=== PATIENT | male | born 1955 | race Two or more races ===

== ENCOUNTER 2021-05-01 03:13 | Inpatient (IN) | payer MEDICARE, MEDICAID ==
[~2021-05-01] VITALS: Ht 170.2 cm; Wt 165.0 kg
[2021-05-01] VITALS (10 sets, daily range): BP systolic 86–118; BP diastolic 37–64
[2021-05-01 03:51] LABS: ABG BASE EXCESS 0.5 mmol/L (-2.0-3.0); ABG CARBOXYHEMOGLOBIN 1.5 % (0.0-1.5); ABG HCO3 23.4 mmol/L (22.0-26.0); ABG METHEMOGLOBIN 0.3 % (0.0-1.5); ABG OXYGEN CONTENT 16.1 mL/dL (15.0-23.0); ABG OXYGEN SATURATION 85.5 % (95.0-98.0); ABG PCO2 66 mmHg (35-45); ABG PH 7.242 (7.35-7.450); ABG TOTAL HEMOGLOBIN 13.6 G/dL (12.0-18.0); SOURCE, BLOOD GAS ARTERIAL; TEMPERATURE, FAHRENHEIT, BG 98.8 FAHREN (96.0-98.6)
[2021-05-01 03:53] LABS: BASOPHILS % (AUTO) 0.6 % (0.0-2.0); EOSINOPHILS % (AUTO) 0.5 % (1.0-6.0); HEMATOCRIT 39.4 % (41-53); HEMOGLOBIN 12.5 g/dL (13.5-17.5); LYMPHOCYTES # (AUTO) 0.7 K/uL (1.0-4.8); LYMPHOCYTES % (AUTO) 5.2 % (22.0-44.0); MEAN CORPUSCULAR HEMOGLOBIN 28.5 pg (26.0-34.0); MEAN CORPUSCULAR HGB CONC 31.7 G/dL (31.0-37.0); MEAN CORPUSCULAR VOLUME 90 fL (80-100); MONOCYTES # (AUTO) 0.7 K/uL (0.1-1.0); MONOCYTES % (AUTO) 5.3 % (2.0-9.0); NEUTROPHILS # (AUTO) 11.2 K/uL (1.8-7.7); PLATELET COUNT (AUTO) 178 K/uL (150-450); RED BLOOD CELL COUNT(AUTO) 4.39 MIL/uL (4.50-5.90); RED CELL DISTRIBUTION WIDTH 16.6 % (11.5-14.5)
[2021-05-01 03:53] LABS: O2 DEVICE,BLOOD GAS VENTILATOR (ROOM AIR); PEEP,BG 5 cm H2O; SITE, BLOOD GAS LFT RADIAL; SPONTANEOUS VT, BG 473 ml; VT, ABG 500 ml
[2021-05-01] MEDS ORDERED: PIPERACILLIN/TAZO 3.375 GM/D5W 50 ML IV ONE (04:00)
[2021-05-01] MEDS ORDERED: VANCOMYCIN HCL 1 GM/D5% WATER 200 ML IV ONE ×2 (04:00→08:00)
[2021-05-01] MEDS ORDERED: AZITHROMYCIN 500 MG/NS 250 ML IV ONE (04:00)
[2021-05-01 04:03] LABS: NEUTROPHILS % (AUTO) 88.4 % (40.0-70.0)
[2021-05-01 04:09] LABS: PROTHROMBIN TIME 68.7 SEC (9.4-11.6)
[2021-05-01 04:11] LABS: COVID AG,FIA SOURCE NASOPHARYNGEAL
[2021-05-01 04:13] LABS: LACTIC ACID 1.4 mmol/L (0.4-2.0)
[2021-05-01 04:20] LABS: CALCIUM, TOTAL 8.4 mg/dL (8.8-10.5); CREATININE 1.3 mg/dL (0.60-1.30); POTASSIUM 3.4 mmol/L (3.5-5.1)
[2021-05-01 04:24] LABS: ALBUMIN 3.5 g/dL (3.4-5.0); BILIRUBIN,TOTAL 0.6 mg/dL (0.1-1.0); MAGNESIUM 2.3 mg/dL (1.80-2.40); PHOSPHORUS 4.7 mg/dL (2.5-4.9); TOTAL PROTEIN, SERUM 6.4 g/dL (6.4-8.2)
[2021-05-01] MEDS ORDERED: FUROSEMIDE 40 MG/4 ML VIAL IVP ONE (04:45)
[2021-05-01] MEDS ORDERED: ONDANSETRON HCL 4 MG/2 ML VIAL IVP PRN (04:45)
[2021-05-01] MEDS ORDERED: DEXTROSE 50%-WATER 25 GM/50 ML SYRINGE IVP PRN (05:00)
[2021-05-01 05:07] LABS: ABG BASE EXCESS 2.7 mmol/L (-2.0-3.0); ABG CARBOXYHEMOGLOBIN 1.2 % (0.0-1.5); ABG HCO3 25.7 mmol/L (22.0-26.0); ABG METHEMOGLOBIN 0.1 % (0.0-1.5); ABG OXYHEMOGLOBIN 83.9 % (94.0-100.0); ABG PCO2 55 mmHg (35-45); ABG PH 7.336 (7.35-7.450); ABG TOTAL HEMOGLOBIN 12.7 G/dL (12.0-18.0); PO2, ARTERIAL BG 53.2 mmHg (79.0-87.0); SOURCE, BLOOD GAS ARTERIAL; TEMPERATURE, FAHRENHEIT, BG 98.5 FAHREN (96.0-98.6)
[2021-05-01] MEDS ORDERED: PROPOFOL 1000 MG/ISO-OSM 100 ML IV PRN (05:15)
[2021-05-01 05:23] LABS: INR 7.7 (0.9-1.1)
[2021-05-01 05:38] LABS: O2 DEVICE,BLOOD GAS VENTILATOR (ROOM AIR); PEEP,BG 10 cm H2O; SITE, BLOOD GAS RT RADIAL; VT, ABG 500 ml
[2021-05-01 05:39] LABS: SPONTANEOUS VT, BG 469 ml
[2021-05-01] MEDS: POTASSIUM CHL 10 MEQ/WATER 50 ML IV SCH ×2 (05:47→06:34)
[2021-05-01 05:49] LABS: APPEARANCE,URINE CLEAR (CLEAR); BILIRUBIN,URINE NEGATIVE (NEGATIVE); GLUCOSE, URINE (UA) NEGATIVE (NEGATIVE); KETONES,URINE NEGATIVE (NEGATIVE); LEUKOCYTE ESTERASE ,URINE NEGATIVE (NEGATIVE); NITRATE,URINE NEGATIVE (NEGATIVE); OCCULT BLOOD,URINE MODERATE (NEGATIVE); PH,URINE 5.5 (5.0-8.0); PROTEIN,URINE SEE CONFIRM (NEGATIVE); UROBILINOGEN,URINE 0.2 mg/dL (<=1.0)
[2021-05-01] MEDS: INSULIN GLARGINE,HUM.REC.ANLOG 100 UNITS/ML SQ SCH ×2 (05:49→21:00)
[2021-05-01] MEDS: PANTOPRAZOLE SODIUM 40 MG/VIAL IVP SCH ×2 (05:49→21:00)
[2021-05-01 05:51] LABS: SULFOSALICYLIC ACID,URINE 4+ (Negative)
[2021-05-01 05:52] LABS: BACTERIA,URINE Rare /HPF (None Seen); WBC,URINE 0-2 /HPF (0-5)
[2021-05-01] MEDS ORDERED: PHYTONADIONE 10 MG/1 ML AMP SQ ONE (06:00)
[2021-05-01] MEDS: FentaNYL CIT 1000MCG/0.9% NACL 100 ML IV PRN ×3 (06:36→21:58)
[2021-05-01] MEDS ORDERED: NOREPINEPHRINE 4 MG/D5%-WATER 250 ML IV PRN (06:45)
[2021-05-01 07:02] LABS: INFLUENZA TYPE A NEGATIVE FOR TYPE A (NEGATIVE); INFLUENZA TYPE B NEGATIVE FOR TYPE B (NEGATIVE)
[2021-05-01] MEDS: FUROSEMIDE 20 MG/2 ML VIAL IVP SCH ×2 (08:28→15:46)
[2021-05-01] MEDS: METOPROLOL SUCCINATE 25 MG ER TABLET PO SCH ×2 (09:00→21:00)
[2021-05-01] MEDS: NITROGLYCERIN 2% (1 GM=INCH) PACKET TP SCH ×2 (09:00→15:31)
[2021-05-01] MEDS ORDERED: PIPERACILLIN/TAZO 3.375 GM/D5W 50 ML IV SCH (12:00)
[2021-05-01] MEDS: CHLORHEXIDINE GLUCONATE 0.12% 15 ML UDCUP ORAL RINSE MM SCH ×2 (12:15→22:54)
[2021-05-01] MEDS: PIPERACILLIN SODIUM/TAZOBACTAM 4.5 GM in DEXTROSE 5%-WATER 100 ML IV SCH ×2 (12:16→18:57)
[2021-05-01] MEDS ORDERED: PROPOFOL 1000 MG/ISO-OSM 100 ML ONE (12:22)
[2021-05-01] MEDS ORDERED: SODIUM CHLORIDE 0.9% 100 ML ONE (12:59)
[2021-05-01] MEDS ORDERED: IOHEXOL 350 MG/ML 100 ML VIAL ONE (12:59)
[2021-05-01] MEDS: ATORVASTATIN CALCIUM 20 MG TABLET PO SCH ×2 (14:00→15:26)
[2021-05-01] MEDS: INSULIN LISPRO 100 UNITS/ML SQ PRN (14:10)
[2021-05-01 15:10] LABS: BASOPHILS % (AUTO) 0.5 % (0.0-2.0); EOSINOPHILS % (AUTO) 0.8 % (1.0-6.0); HEMATOCRIT 36.1 % (41-53); HEMOGLOBIN 11.7 g/dL (13.5-17.5); LYMPHOCYTES # (AUTO) 0.4 K/uL (1.0-4.8); LYMPHOCYTES % (AUTO) 4.1 % (22.0-44.0); MEAN CORPUSCULAR HEMOGLOBIN 28.7 pg (26.0-34.0); MEAN CORPUSCULAR HGB CONC 32.4 G/dL (31.0-37.0); MEAN CORPUSCULAR VOLUME 89 fL (80-100); MONOCYTES # (AUTO) 0.7 K/uL (0.1-1.0); MONOCYTES % (AUTO) 6.9 % (2.0-9.0); PLATELET COUNT (AUTO) 155 K/uL (150-450); RED BLOOD CELL COUNT(AUTO) 4.07 MIL/uL (4.50-5.90); RED CELL DISTRIBUTION WIDTH 16.8 % (11.5-14.5)
[2021-05-01 15:11] LABS: NEUTROPHILS % (AUTO) 87.7 % (40.0-70.0)
[2021-05-01 15:32] LABS: CALCIUM, TOTAL 7.5 mg/dL (8.8-10.5); CREATININE 1.34 mg/dL (0.60-1.30); POTASSIUM 3.6 mmol/L (3.5-5.1)
[2021-05-01 15:38] LABS: ALBUMIN 2.7 g/dL (3.4-5.0); BILIRUBIN,TOTAL 0.4 mg/dL (0.1-1.0); TOTAL PROTEIN, SERUM 5.3 g/dL (6.4-8.2)
[2021-05-01] MEDS: NOREPINEPHRINE 4 MG/D5%-WATER 250 ML IV PRN ×2 (16:15→21:57)
[2021-05-01 17:34] LABS: PROTHROMBIN TIME 78.6 SEC (9.4-11.6)
[2021-05-01] MEDS ORDERED: PHYTONADIONE 5 MG in SODIUM CHLORIDE 0.9% 50 ML IV ONE (17:45)
[2021-05-01] MEDS: PROPOFOL 1000 MG/ISO-OSM 100 ML IV PRN ×2 (18:00→21:57)
[2021-05-01] MEDS: VANCOMYCIN HCL 1.5 GM in DEXTROSE 5%-WATER 250 ML IV SCH (20:00)
[2021-05-02] MEDS: PIPERACILLIN SODIUM/TAZOBACTAM 4.5 GM in DEXTROSE 5%-WATER 100 ML IV SCH ×4 (01:20→17:31)
[2021-05-02] MEDS: PROPOFOL 1000 MG/ISO-OSM 100 ML IV PRN ×2 (01:21→12:15)
[2021-05-02] MEDS: NOREPINEPHRINE 4 MG/D5%-WATER 250 ML IV PRN ×2 (01:21→22:22)
[2021-05-02] MEDS: CISATRACURIUM BESYLATE 100 MG in DEXTROSE 5%-WATER 240 ML IV PRN ×2 (01:22→15:37)
[2021-05-02 03:12] LABS: ABG METHEMOGLOBIN 0.3 % (0.0-1.5); SOURCE, BLOOD GAS ARTERIAL
[2021-05-02] MEDS: FentaNYL CIT 1000MCG/0.9% NACL 100 ML IV PRN ×3 (03:24→18:22)
[2021-05-02 03:40] LABS: ABG BASE EXCESS -0.3 mmol/L (-2.0-3.0); ABG CARBOXYHEMOGLOBIN 0.2 % (0.0-1.5); ABG OXYGEN CONTENT 14.8 mL/dL (15.0-23.0); ABG OXYGEN SATURATION 92.5 % (95.0-98.0); ABG PCO2 47 mmHg (35-45); ABG TOTAL HEMOGLOBIN 11.4 G/dL (12.0-18.0); PO2, ARTERIAL BG 69.9 mmHg (79.0-87.0); TEMPERATURE, FAHRENHEIT, BG 100.1 FAHREN (96.0-98.6)
[2021-05-02 03:41] LABS: O2 DEVICE,BLOOD GAS VENTILATOR (ROOM AIR); PEEP,BG 12 cm H2O; SITE, BLOOD GAS RT RADIAL; SPONTANEOUS VT, BG 443 ml; VT, ABG 450 ml
[2021-05-02 05:06] LABS: BASOPHILS % (AUTO) 0.5 % (0.0-2.0); EOSINOPHILS % (AUTO) 1.2 % (1.0-6.0); HEMATOCRIT 34.9 % (41-53); HEMOGLOBIN 11.1 g/dL (13.5-17.5); LYMPHOCYTES # (AUTO) 0.3 K/uL (1.0-4.8); LYMPHOCYTES % (AUTO) 3.8 % (22.0-44.0); MEAN CORPUSCULAR HGB CONC 31.8 G/dL (31.0-37.0); MEAN CORPUSCULAR VOLUME 91 fL (80-100); MONOCYTES # (AUTO) 0.3 K/uL (0.1-1.0); MONOCYTES % (AUTO) 4.4 % (2.0-9.0); NEUTROPHILS # (AUTO) 6.8 K/uL (1.8-7.7); RED BLOOD CELL COUNT(AUTO) 3.83 MIL/uL (4.50-5.90); RED CELL DISTRIBUTION WIDTH 16.5 % (11.5-14.5)
[2021-05-02 05:29] LABS: ALBUMIN 2.8 g/dL (3.4-5.0); BILIRUBIN,TOTAL 0.7 mg/dL (0.1-1.0); CALCIUM, TOTAL 8.1 mg/dL (8.8-10.5); CREATININE 2.03 mg/dL (0.60-1.30); MAGNESIUM 1.8 mg/dL (1.80-2.40); POTASSIUM 3.6 mmol/L (3.5-5.1); TOTAL PROTEIN, SERUM 5.4 g/dL (6.4-8.2)
[2021-05-02 06:29] LABS: NEUTROPHILS % (AUTO) 90.1 % (40.0-70.0)
[2021-05-02 06:48] LABS: PLATELET COUNT (AUTO) 150 K/uL (150-450)
[2021-05-02 07:05] LABS: INR 1.5 (0.9-1.1); PROTHROMBIN TIME 15.5 SEC (9.4-11.6)
[2021-05-02 08:36] LABS: ABG BASE EXCESS -1.7 mmol/L (-2.0-3.0); ABG CARBOXYHEMOGLOBIN 0.3 % (0.0-1.5); ABG HCO3 22.7 mmol/L (22.0-26.0); ABG METHEMOGLOBIN 0.1 % (0.0-1.5); ABG OXYGEN CONTENT 14.1 mL/dL (15.0-23.0); ABG OXYGEN SATURATION 91.3 % (95.0-98.0); ABG OXYHEMOGLOBIN 90.9 % (94.0-100.0); ABG PCO2 52 mmHg (35-45); ABG PH 7.296 (7.35-7.450); PO2, ARTERIAL BG 69.2 mmHg (79.0-87.0); SOURCE, BLOOD GAS ARTERIAL; TEMPERATURE, FAHRENHEIT, BG 100.1 FAHREN (96.0-98.6)
[2021-05-02 08:37] LABS: ABG A-A DIFF O2 589.3 mmHg (10-20.0); O2 DEVICE,BLOOD GAS VENT (ROOM AIR); SITE, BLOOD GAS RT RADIAL; VT, ABG 450 ml
[2021-05-02 08:38] LABS: PEEP,BG 12 cm H2O
[2021-05-02] MEDS: FUROSEMIDE 20 MG/2 ML VIAL IVP SCH ×3 (08:44→15:37)
[2021-05-02] MEDS: VANCOMYCIN HCL 1.5 GM in DEXTROSE 5%-WATER 250 ML IV SCH ×2 (08:44→20:56)
[2021-05-02] MEDS: NITROGLYCERIN 2% (1 GM=INCH) PACKET TP SCH ×3 (08:44→15:39)
[2021-05-02] MEDS: METOPROLOL SUCCINATE 25 MG ER TABLET PO SCH ×2 (09:34→20:59)
[2021-05-02] MEDS: ATORVASTATIN CALCIUM 20 MG TABLET PO SCH (09:34)
[2021-05-02] MEDS: PANTOPRAZOLE SODIUM 40 MG/VIAL IVP SCH ×2 (09:34→21:28)
[2021-05-02] MEDS: CHLORHEXIDINE GLUCONATE 0.12% 15 ML UDCUP ORAL RINSE MM SCH ×2 (09:34→21:28)
[2021-05-02 10:11] LABS: GLUCOSE,POINT OF CARE 200 MG/DL (70-110)
[2021-05-02 12:31] LABS: GLUCOSE,POINT OF CARE 232 MG/DL (70-110)
[2021-05-02 16:06] LABS: GLUCOMETER DEV NAME(LOC) ERT.5; GLUCOSE,POINT OF CARE 236 MG/DL (70-110)
[2021-05-02] MEDS ORDERED: ACETAMINOPHEN 650 MG/20.3 ML SOLUTION UDCUP NG PRN (17:30)
[2021-05-02 20:31] LABS: GLUCOMETER DEV NAME(LOC) ERT.5; GLUCOSE,POINT OF CARE 265 MG/DL (70-110)
[2021-05-02] MEDS: INSULIN GLARGINE,HUM.REC.ANLOG 100 UNITS/ML SQ SCH (21:01)
[2021-05-03] MEDS: METOPROLOL SUCCINATE 25 MG ER TABLET PO SCH ×5 (00:54→22:55)
[2021-05-03] MEDS: PIPERACILLIN SODIUM/TAZOBACTAM 4.5 GM in DEXTROSE 5%-WATER 100 ML IV SCH ×4 (00:54→17:25)
[2021-05-03] MEDS: FUROSEMIDE 20 MG/2 ML VIAL IVP SCH ×3 (01:16→15:47)
[2021-05-03] MEDS: NITROGLYCERIN 2% (1 GM=INCH) PACKET TP SCH ×3 (01:31→15:47)
[2021-05-03 01:51] LABS: GLUCOMETER DEV NAME(LOC) ERT.5; GLUCOSE,POINT OF CARE 267 MG/DL (70-110)
[2021-05-03 06:21] LABS: GLUCOMETER DEV NAME(LOC) ERT.5; GLUCOSE,POINT OF CARE 267 MG/DL (70-110)
[2021-05-03] MEDS ORDERED: DEXTROSE 50%-WATER 25 GM/50 ML SYRINGE IVP PRN (06:30)
[2021-05-03] MEDS: INSULIN LISPRO 100 UNITS/ML SQ PRN ×3 (06:34→22:02)
[2021-05-03] MEDS: ATORVASTATIN CALCIUM 20 MG TABLET PO SCH (08:44)
[2021-05-03] MEDS: PANTOPRAZOLE SODIUM 40 MG/VIAL IVP SCH ×2 (08:45→21:59)
[2021-05-03] MEDS: VANCOMYCIN HCL 1.5 GM in DEXTROSE 5%-WATER 250 ML IV SCH (08:45)
[2021-05-03] MEDS: PROPOFOL 1000 MG/ISO-OSM 100 ML IV PRN ×2 (08:48→13:33)
[2021-05-03] MEDS: CHLORHEXIDINE GLUCONATE 0.12% 15 ML UDCUP ORAL RINSE MM SCH ×2 (09:19→22:00)
[2021-05-03] MEDS: FentaNYL CIT 1000MCG/0.9% NACL 100 ML IV PRN ×2 (10:24→16:16)
[2021-05-03] MEDS: CISATRACURIUM BESYLATE 100 MG in DEXTROSE 5%-WATER 240 ML IV PRN (11:05)
[2021-05-03 11:12] LABS: BASOPHILS % (AUTO) 0.7 % (0.0-2.0); EOSINOPHILS % (AUTO) 2.2 % (1.0-6.0); HEMATOCRIT 30.3 % (41-53); HEMOGLOBIN 10.5 g/dL (13.5-17.5); LYMPHOCYTES # (AUTO) 0.1 K/uL (1.0-4.8); LYMPHOCYTES % (AUTO) 1.8 % (22.0-44.0); MEAN CORPUSCULAR HGB CONC 34.8 G/dL (31.0-37.0); MEAN CORPUSCULAR VOLUME 89 fL (80-100); MONOCYTES # (AUTO) 0.2 K/uL (0.1-1.0); MONOCYTES % (AUTO) 3.4 % (2.0-9.0); NEUTROPHILS # (AUTO) 6.3 K/uL (1.8-7.7); RED BLOOD CELL COUNT(AUTO) 3.41 MIL/uL (4.50-5.90); RED CELL DISTRIBUTION WIDTH 15.8 % (11.5-14.5)
[2021-05-03 11:13] LABS: NEUTROPHILS % (AUTO) 91.9 % (40.0-70.0)
[2021-05-03 11:26] LABS: PLATELET COUNT (AUTO) 69 K/uL (150-450)
[2021-05-03 11:30] LABS: CALCIUM, TOTAL 6.9 mg/dL (8.8-10.5); CREATININE 2.68 mg/dL (0.60-1.30); POTASSIUM 3.5 mmol/L (3.5-5.1)
[2021-05-03 11:36] LABS: BILIRUBIN,TOTAL 1.2 mg/dL (0.1-1.0)
[2021-05-03 12:27] LABS: VANCOMYCIN,RANDOM 70.5 mcg/mL (25.0-50.0)
[2021-05-03 12:33] LABS: GLUCOMETER DEV NAME(LOC) ERT.5; GLUCOSE,POINT OF CARE 296 MG/DL (70-110)
[2021-05-03 12:40] LABS: TOTAL PROTEIN, SERUM 4.9 g/dL (6.4-8.2)
[2021-05-03 19:21] LABS: GLUCOMETER DEV NAME(LOC) ERT.5; GLUCOSE,POINT OF CARE 261 MG/DL (70-110)
[2021-05-03] MEDS: VANCOMYCIN HCL 750 MG in DEXTROSE 5%-WATER 250 ML IV SCH (21:39)
[2021-05-03] MEDS: INSULIN GLARGINE,HUM.REC.ANLOG 100 UNITS/ML SQ SCH (22:01)
[2021-05-04] MEDS: FUROSEMIDE 20 MG/2 ML VIAL IVP SCH (00:34)
[2021-05-04] MEDS: NITROGLYCERIN 2% (1 GM=INCH) PACKET TP SCH ×3 (00:34→16:00)
[2021-05-04] MEDS: PIPERACILLIN SODIUM/TAZOBACTAM 4.5 GM in DEXTROSE 5%-WATER 100 ML IV SCH ×2 (00:34→07:41)
[2021-05-04 01:31] LABS: GLUCOMETER DEV NAME(LOC) ERT.5; GLUCOSE,POINT OF CARE 258 MG/DL (70-110)
[2021-05-04] MEDS: FentaNYL CIT 1000MCG/0.9% NACL 100 ML IV PRN ×4 (04:29→18:55)
[2021-05-04 05:00] VITALS: BP 102/60
[2021-05-04 05:26] LABS: SOURCE, BLOOD GAS ARTERIAL
[2021-05-04] MEDS: PROPOFOL 1000 MG/ISO-OSM 100 ML IV PRN ×8 (05:30→22:50)
[2021-05-04 05:57] LABS: CALCIUM, TOTAL 7.8 mg/dL (8.8-10.5); CREATININE 3.37 mg/dL (0.60-1.30); PHOSPHORUS 7.5 mg/dL (2.5-4.9); POTASSIUM 3.6 mmol/L (3.5-5.1)
[2021-05-04 06:16] LABS: ABG METHEMOGLOBIN 0.3 % (0.0-1.5); ABG TOTAL HEMOGLOBIN 11.7 G/dL (12.0-18.0)
[2021-05-04] MEDS ORDERED: VASOPRESSIN 40 UNITS in DEXTROSE 5%-WATER 98 ML IV PRN (06:30)
[2021-05-04] MEDS ORDERED: PHENYLEPHRINE 200 MG/D5%-WATER 250 ML IV PRN (06:30)
[2021-05-04 06:40] LABS: ABG BASE EXCESS -5.6 mmol/L (-2.0-3.0); ABG CARBOXYHEMOGLOBIN 0.7 % (0.0-1.5); ABG HCO3 19.2 mmol/L (22.0-26.0); ABG OXYGEN CONTENT 13.1 mL/dL (15.0-23.0); ABG OXYHEMOGLOBIN 79.5 % (94.0-100.0); ABG PCO2 58 mmHg (35-45); PO2, ARTERIAL BG 50.4 mmHg (79.0-87.0); TEMPERATURE, FAHRENHEIT, BG 97.7 FAHREN (96.0-98.6)
[2021-05-04 06:44] LABS: ABG OXYGEN SATURATION 80.3 % (95.0-98.0); ABG PH 7.203 (7.35-7.450); O2 DEVICE,BLOOD GAS VENTILATOR (ROOM AIR); PEEP,BG 12 cm H2O; SITE, BLOOD GAS RT BRACHIAL; VENT MODE, BG Press. Control Vent (ROOM AIR)
[2021-05-04] MEDS ORDERED: SODIUM CHLORIDE 0.9% 250 ML IV ONE (07:52)
[2021-05-04] MEDS: NOREPINEPHRINE 4 MG/D5%-WATER 250 ML IV PRN (07:55)
[2021-05-04] MEDS: CISATRACURIUM BESYLATE 100 MG in DEXTROSE 5%-WATER 240 ML IV PRN ×2 (07:56→16:54)
[2021-05-04 08:00] VITALS: BP 100/60
[2021-05-04] MEDS: METOPROLOL SUCCINATE 25 MG ER TABLET PO SCH ×2 (09:00→21:00)
[2021-05-04] MEDS: VANCOMYCIN HCL 750 MG in DEXTROSE 5%-WATER 250 ML IV SCH (09:06)
[2021-05-04] MEDS: PANTOPRAZOLE SODIUM 40 MG/VIAL IVP SCH ×2 (09:07→21:34)
[2021-05-04] MEDS: CHLORHEXIDINE GLUCONATE 0.12% 15 ML UDCUP ORAL RINSE MM SCH ×2 (09:07→21:34)
[2021-05-04] MEDS: ATORVASTATIN CALCIUM 20 MG TABLET PO SCH (09:08)
[2021-05-04] MEDS: ETHYL ALCOHOL 62% ANTISEPTIC NASAL INHALANT 0.6 ML AMPUL NASAL SCH ×2 (09:08→21:34)
[2021-05-04] MEDS: NOREPINEPHRINE BITARTRATE 8 MG in DEXTROSE 5%-WATER 242 ML IV PRN ×3 (10:30→23:11)
[2021-05-04 12:00] VITALS: BP 93/58
[2021-05-04 12:01] LABS: ABG BASE EXCESS -5.1 mmol/L (-2.0-3.0); ABG CARBOXYHEMOGLOBIN 0.3 % (0.0-1.5); ABG METHEMOGLOBIN 0.3 % (0.0-1.5); SOURCE, BLOOD GAS ARTERIAL; TEMPERATURE, FAHRENHEIT, BG 97.7 FAHREN (96.0-98.6)
[2021-05-04 12:04] LABS: ABG HCO3 20.6 mmol/L (22.0-26.0); ABG OXYGEN SATURATION 93.1 % (95.0-98.0); ABG OXYHEMOGLOBIN 92.5 % (94.0-100.0); ABG PCO2 37 mmHg (35-45); ABG TOTAL HEMOGLOBIN 11.5 G/dL (12.0-18.0); PO2, ARTERIAL BG 65.6 mmHg (79.0-87.0)
[2021-05-04 12:05] LABS: O2 DEVICE,BLOOD GAS VENTILATOR (ROOM AIR); PEEP,BG 10 cm H2O; PRESSURE SUPPORT, BG 26 cm H2O; SITE, BLOOD GAS RT BRACHIAL
[2021-05-04 12:06] LABS: SPONTANEOUS VT, BG 506 ml
[2021-05-04 12:11] LABS: GLUCOSE,POINT OF CARE 304 MG/DL (70-110)
[2021-05-04] MEDS: PIPERACILLIN SODIUM/TAZOBACTAM 2.25 GM in DEXTROSE 5%-WATER 50 ML IV SCH ×2 (12:20→16:55)
[2021-05-04] MEDS: INSULIN LISPRO 100 UNITS/ML SQ PRN ×2 (12:22→22:14)
[2021-05-04] MEDS ORDERED: VANCOMYCIN HCL 1 GM/D5% WATER 200 ML IV PRN (15:15)
[2021-05-04 16:00] VITALS: BP 102/58
[2021-05-04 17:22] LABS: ABG METHEMOGLOBIN 0.3 % (0.0-1.5); ABG TOTAL HEMOGLOBIN 11.5 G/dL (12.0-18.0); SOURCE, BLOOD GAS ARTERIAL; TEMPERATURE, FAHRENHEIT, BG 98.1 FAHREN (96.0-98.6)
[2021-05-04 17:24] LABS: ABG BASE EXCESS -7.8 mmol/L (-2.0-3.0); ABG CARBOXYHEMOGLOBIN 0.5 % (0.0-1.5); ABG HCO3 18.9 mmol/L (22.0-26.0); ABG OXYGEN CONTENT 15.3 mL/dL (15.0-23.0); ABG OXYGEN SATURATION 94.8 % (95.0-98.0); ABG PCO2 30 mmHg (35-45); ABG PH 7.383 (7.35-7.450); PO2, ARTERIAL BG 72.7 mmHg (79.0-87.0)
[2021-05-04 17:25] LABS: O2 DEVICE,BLOOD GAS VENTILATOR (ROOM AIR); SITE, BLOOD GAS RT BRACHIAL; VENT MODE, BG Press. Control Vent (ROOM AIR); VT, ABG 560 ml
[2021-05-04 17:28] LABS: PEEP,BG 12 cm H2O; SPONTANEOUS VT, BG 560 ml
[2021-05-04 18:36] LABS: GLUCOSE,POINT OF CARE 324 MG/DL (70-110)
[2021-05-04] MEDS ORDERED: DEXAMETHASONE SOD PHOS 4 MG/ML VIAL IVP SCH (19:15)
[2021-05-04 20:00] VITALS: BP 85/62
[2021-05-04 21:56] LABS: GLUCOSE,POINT OF CARE 338 MG/DL (70-110)
[2021-05-04 22:00] VITALS: BP 100/48
[2021-05-04] MEDS: INSULIN GLARGINE,HUM.REC.ANLOG 100 UNITS/ML SQ SCH (22:14)
[2021-05-05] VITALS: BP 90/71
[2021-05-05] MEDS: PIPERACILLIN SODIUM/TAZOBACTAM 2.25 GM in DEXTROSE 5%-WATER 50 ML IV SCH ×2 (00:12→05:04)
[2021-05-05] MEDS: NITROGLYCERIN 2% (1 GM=INCH) PACKET TP SCH ×2 (00:13)
[2021-05-05] MEDS: FentaNYL CIT 1000MCG/0.9% NACL 100 ML IV PRN ×2 (00:13→04:41)
[2021-05-05] MEDS: PROPOFOL 1000 MG/ISO-OSM 100 ML IV PRN ×3 (00:30→05:05)
[2021-05-05 02:00] VITALS: BP 104/70
[2021-05-05 02:33] VITALS: BP 84/56
[2021-05-05] MEDS ORDERED: PHENYLEPHRINE 200 MG/D5%-WATER 250 ML IV PRN (03:45)
[2021-05-05] MEDS ORDERED: DOPamine 400MG/D5W[STANDARD] 250 ML IV PRN (03:45)
[2021-05-05 03:54] VITALS: BP 81/57
[2021-05-05 04:00] VITALS: BP 81/57
[2021-05-05] MEDS: CISATRACURIUM BESYLATE 100 MG in DEXTROSE 5%-WATER 240 ML IV PRN (04:01)
[2021-05-05] MEDS ORDERED: SODIUM CHLORIDE 0.9% 500 ML IV ONE (04:18)
[2021-05-05 05:06] VITALS: BP 81/42
[2021-05-05] MEDS: NOREPINEPHRINE BITARTRATE 8 MG in DEXTROSE 5%-WATER 242 ML IV PRN (05:06)
[2021-05-05] MEDS ORDERED: ATROPINE SULFATE 0.1 MG/ML 10 ML SYRINGE IVP ONE ×2 (05:28→06:00)
[2021-05-05] MEDS ORDERED: SODIUM BICARBONATE [ADULT] 8.4% 50 MEQ/50 ML SYRINGE IVP ONE ×3 (05:29→06:24)
[2021-05-05] MEDS ORDERED: EPINEPHrine 1:10,000 [1 MG/10 ML] SYRINGE ONE (06:20)
[2021-05-05] MEDS ORDERED: LIDOCAINE 2% 5 ML JELLY TP ONE (06:24)
[2021-05-05] MEDS ORDERED: EPINEPHrine 1:10,000 [1 MG/10 ML] SYRINGE IVP ONE (06:24)
[2021-05-05] MEDS ORDERED: CALCIUM CHLORIDE 100 MG/ML 10 ML SYRINGE IVP ONE (06:24)
[2021-05-05] MEDS ORDERED: 0.9% SODIUM CHLORIDE 10 ML SYRINGE IVP ONE (06:24)
[2021-05-05 06:57] LABS: CALCIUM, TOTAL 7.7 mg/dL (8.8-10.5); CREATININE 4.22 mg/dL (0.60-1.30); POTASSIUM 4.6 mmol/L (3.5-5.1); VANCOMYCIN,RANDOM 39.8 mcg/mL (25.0-50.0)
== END 2021-05-05 06:25 | DRG 870 ==
LOC: EMS 03:14 → ICUN 04:40 → UNDOADMIN 05-02 07:48 → ICUN 05-02 07:49 → ICU 05-04 01:00 → UNDODISIN 05-05 06:25
PROVIDERS: ADMIT Internal Medicine; ATTEND Internal Medicine
PROC: 5A1955Z Respiratory Ventilation, Greater than 96 Consecutive Hours (ICD-10-PCS; principal; 2021-05-01)
PROC: 0BH17EZ Insertion of Endotracheal Airway into Trachea, Via Natural or Artificial Opening (ICD-10-PCS; 2021-05-01)
PROC: 5A09357 Assistance with Respiratory Ventilation, Less than 24 Consecutive Hours, Continuous Positive Airway Pressure (ICD-10-PCS; 2021-05-01)
PROC: 30233K1 Transfusion of Nonautologous Frozen Plasma into Peripheral Vein, Percutaneous Approach (ICD-10-PCS; 2021-05-01)
DX: A41.89 Other specified sepsis (principal); I21.4 Non-ST elevation (NSTEMI) myocardial infarction; U07.1 COVID-19; J12.82 Pneumonia due to coronavirus disease 2019; J96.01 Acute respiratory failure with hypoxia; R65.21 Severe sepsis with septic shock; N17.0 Acute kidney failure with tubular necrosis; D68.32 Hemorrhagic disorder due to extrinsic circulating anticoagulants; Z68.43 Body mass index [BMI] 50.0-59.9, adult; R65.20 Severe sepsis without septic shock; D64.9 Anemia, unspecified; E11.65 Type 2 diabetes mellitus with hyperglycemia; E66.9 Obesity, unspecified; E87.6 Hypokalemia; I48.91 Unspecified atrial fibrillation; I25.10 Atherosclerotic heart disease of native coronary artery without angina pectoris; T45.515A Adverse effect of anticoagulants, initial encounter; R31.0 Gross hematuria; Z95.5 Presence of coronary angioplasty implant and graft; Z79.01 Long term (current) use of anticoagulants; N13.9 Obstructive and reflux uropathy, unspecified; I12.9 Hypertensive chronic kidney disease with stage 1 through stage 4 chronic kidney disease, or unspecified chronic kidney disease; N18.9 Chronic kidney disease, unspecified; T50.8X5A Adverse effect of diagnostic agents, initial encounter; E11.22 Type 2 diabetes mellitus with diabetic chronic kidney disease; E78.5 Hyperlipidemia, unspecified; Y92.89 Other specified places as the place of occurrence of the external cause
CPT/HCPCS: 36245; 36569; 36600; 71045; 71260; 72193; 74160; 76937; 80048; 80053; 80202; 81001; 81002; 82271; 82550; 82805; 82962; 83605; 83690; 83735; 83880; 84100; 84145; 84484; 85025; 85610; 85730; 86900; 86901; 86927; 87040; 87070; 87077; 87081; 87205; 87804; 92950; 93005; 93306; 93970; 94002; 94003; 99291; C9113; G0378; J0171; J0456; J0461; J1100; J1815; J1940; J2370; J2543; J2704; J3370; J3430; J3480; J3490; J7040; J7050; J7060; P9017; Q9967; 36415-L1; 36415-TC; U0003